=== PATIENT | male | born 1965 | race African-American/Black ===

== ENCOUNTER 2016-12-06 16:47 | Inpatient (IN) ==
[2016-12-06] MEDS ORDERED: ASPIRIN 325 MG TABLET PO STA (17:42)
[2016-12-06] MEDS ORDERED: ONDANSETRON 4 MG/2 ML VIAL IV STA (17:42)
[2016-12-06] MEDS ORDERED: ALBUTEROL/IPRATROPIUM 3 ML NEB RESP TX STA (17:42)
[2016-12-06] MEDS ORDERED: LABETALOL 20 MG/4 ML SYRINGE IV STA ×2 (17:42→20:10)
[2016-12-06] MEDS ORDERED: MORPHINE 2 MG/1 ML SYRINGE IV STA (17:42)
[2016-12-06] MEDS ORDERED: NITROGLYCERIN 2% OINT 1 INCH/GM PACK TOP STA (17:42)
[2016-12-06] MEDS ORDERED: FUROSEMIDE 100 MG/10 ML VIAL IV STA (17:42)
--- NOTE | 2016-12-06 17:45 | Emergency Department Note ---
Dmitry Hercules Brooke, am scribing for, and in the presence of, Esequiel Kern MD 17 :40. Concha Hercules Charles R, MD, personally performed the services described in this documentation, ascribed by Kavya Andres in my presence, and it is both accurate and complete [id number] . Arrival - Arrival Chief Complaint: Shortness of Breath Stated Complaint: chest pain and sob ED Nursing Triage Note: PT C/O SHORTNESS OF BREATH SINCE , INCREASINGLY WORSE WITH EXERTION. PT STATES HE STARTED TO HAVE MIDSTERNAL CHEST PAIN LAST WEEK. STATES PAIN DOES NOT RADIATE. PAIN IS NOT REPRODUCABLE. PT STATES UNABLE TO LIE FLAT. Mode of Arrival: Ambulatory Limitations: No Limitations Source: Patient, RN Notes Reviewed Time Seen by Provider: 12/06/16 17:24 - History of Present Illness HPI Narrative: Patient is a 51 year old male who presents to the ED with c/o chest pain, SOB, and elevated blood pressure. Patient says he has been having problems since a foot injury in June. Patient says the chest pain is worse with movement but better when resting. He says he feels like he is smothering when laying flat. Patient says his legs just recently started swelling. He denies any facial numbness, weakness in arms, headache, or any vision changes. Patient has PMHx of HTN. Patient is not a smoker. Onset (ago): month(s) (6) Allergies/Adverse Reactions: Allergies Allergy/AdvReac Type Severity Reaction Status Date / Time No Known Allergies Allergy Verified 12/06/16 16:55 Home Medications: Home Medications Medication Instructions Recorded Confirmed Type No Known Home Medications [No 12/06/16 12/06/16 History Known Home Medications] Review of System - Review of System 12 point system: reviewed and no additional remarkable complaints except as stated - Review of System Constitutional: Absent: fever Respiratory: Present: other (SOB). Absent: respiratory distress Cardiovascular: Present: chest pain, edema (bilateral leg), other (elevated blood pressure) Skin: Absent: rash Neurological: Absent: headache, weakness, numbness Medical,Surgical,& Family Hx - Medical History Cardio: History of: Hypertension - Social History Smoking Status: Never smoker Frequency of Alcohol Use: None Type of Drug Use: None Exam Vital Signs: Vital Signs Temperature 97.3 F L 12/06/16 19:07 Pulse Rate 82 12/06/16 19:55 Respiratory Rate 20 12/06/16 19:55 Blood Pressure 149/109 12/06/16 19:55 O2 Sat by Pulse Oximetry 97 12/06/16 19:55 - General General appearance: alert, in no apparent distress - Head Head exam: Present: atraumatic, normocephalic - Eye Eye exam: Present: normal appearance, PERRL, EOMI - ENT ENT exam: Present: normal exam - Neck Neck exam: Present: other (Increased JVD distension) - Chest Chest inspection: Present: normal inspection, symmetric chest wall rise - Respiratory Respiratory exam: Present: wheezes - Cardiovascular Cardiovascular exam: Present: normal rhythm, tachycardia, normal heart sounds - Abdominal Exam Abdominal exam: Present: soft. Absent: distention, tenderness - Extremities Exam Extremities exam: Present: pedal edema (+2) - Back Exam Back exam: Present: normal inspection - Neurological Exam Neurological exam: Present: alert, oriented X3 - Psychiatric Psychiatric exam: Present: normal affect, normal mood - Skin Skin exam: Present: warm, dry, intact, normal color Course - Consultations Consultation #1: Hospitalist will admit patient Time: 20:11 Results - Labs CBC & BMP: 12/06/16 17:42 12/06/16 17:42 Lab Results: I have reviewed the patients labs Labs: Laboratory Tests 12/06/16 12/06/16 17:42 17:42 RBC 5.55 H MCV 80.5 L MCH 25 L MCHC 31.3 L RDW 18.5 H Creatinine 1.40 H Total Bilirubin 1.10 H AST 40 H Laboratory Tests 12/06/16 17:42 B-Natriuretic Peptide 1049 H - Diagnostic Findings Procedure: Chest x-ray: report reviewed by me (Findings suggest mild cardiac decompensation.) Critical Care Time Critical Care Time: Yes Total Critical Care Time: 60 Disposition Clinical Impression: Congestive heart failure, Uncontrolled hypertension, Chest pain, UTI (urinary tract infection) Case discussed with: patient, patient's family Disposition: Still a Patient Condition: Stable Time of Disposition: 20:11
[2016-12-06 17:54] LABS: Basophils % 0.3 % (0.0-0.8); Eosinophils # 0.1 10*3/uL (0.0-0.87); Eosinophils % 1.2 % (0.00-10.9); Hematocrit 44.7 VOL% (42.0-52.0); Immature Granulocytes % 0.2 %; Immature Granulocytes Absolute 0.01 #; Lymphocytes # 1.4 10*3/uL (1.4-4.0); Lymphocytes % 23.4 % (21.2-54.2); Mean Corpuscular HGB Conc 31.3 GM/DL (32-36); Mean Corpuscular Hemoglobin 25 PG (27-34); Mean Corpuscular Volume 80.5 FL (87-102); Mean Platelet Volume 11.5 FL (9.6-12.0); Monocytes # 0.5 10*3/uL (0.11-0.8); Monocytes % 8.1 % (1.7-12.7); Neutrophils # 4.1 10*3/uL (1.4-7.4); Neutrophils % 66.8 % (38.7-73.9); Platelet Count 200 T/CUMM (130-400); Red Blood Count 5.55 MC/CUMM (3.8-5.5); Red Cell Distribution Width 18.5 % (9.3-17.3); White Blood Count 6.1 T/CUMM (4-12)
[2016-12-06] MEDS ORDERED: NITROGLYCERIN 2% OINT 1 INCH/GM PACK TOP ONE (17:56)
[2016-12-06] MEDS ORDERED: LABETALOL 20 MG/4 ML SYRINGE IV ONE ×2 (17:56→20:09)
[2016-12-06] MEDS ORDERED: ONDANSETRON 4 MG/2 ML VIAL ONE (17:56)
[2016-12-06] MEDS ORDERED: FUROSEMIDE 40 MG/4 ML VIAL ONE (17:56)
[2016-12-06] MEDS ORDERED: MORPHINE 2 MG/1 ML SYRINGE ONE (17:57)
[2016-12-06] MEDS ORDERED: ASPIRIN 325 MG TABLET ONE (17:57)
[2016-12-06] MEDS ORDERED: FUROSEMIDE 20 MG/2 ML VIAL ONE (17:57)
[2016-12-06 18:03] LABS: D-Dimer 3.8 MG/L FEU; INR 1.1; PT Patient Result 11.9 SECS
--- NOTE | 2016-12-06 18:09 | XRay Report ---
XR chest 2V Indication: Shortness of breath Comparison: None available Findings: The heart and mediastinum are stable in size and configuration. The pulmonary vascularity is slightly increased with bilateral increased interstitial lung density. No other lung infiltrates, effusions, pneumothorax or other abnormality is demonstrated. Impression: Findings suggest mild cardiac decompensation. PROCEDURE INTERPRETED AT [facility] DEPARTMENT OF RADIOLOGY Final Report Signed by: Dr. Cedrick Dennis
[2016-12-06 18:10] LABS: Albumin 3.7 G/DL (3.4-5.0); Bilirubin,Total 1.1 MG/DL (0.2-1.0); Calcium 8.7 MG/DL (8.5-10.1); Magnesium 2.1 MG/DL (1.8-2.4); Osmolality,Calculated 286.8 MOS/KG (273-304); Potassium 4.2 MMOL/L (3.5-5.1); Total Protein 6.7 G/DL (6.4-8.3); Troponin I Only 0.043 NG/ML (0.00-0.045)
[2016-12-06 19:46] LABS: Apearance,Urine Slightly Hazy (Clear); Bacteria,Urine Few /HPF (Few); Bilirubin,Urine Negative (Negative); Blood, Urine Moderate mg/dL (Negative); Glucose,Urine (UA) Negative (Negative); Hyaline Casts,Urine 8 /LPF (0-3); Ketones,Urine Negative (Negative); Nitrite,Urine Negative (Negative); Protein,Urine 100 MG/DL; RBC,Urine 27 /HPF (0-4); Squamous Epithelial Cell,Urine Occasional /HPF (0-10); Urine Color Yellow (Yellow); Urine Specific Gravity 1.013 (1.001-1.035); Urine Urobilinogen < 2.0 EU/DL (0.2-1.0); WBC,Urine 38 /HPF (0-6)
--- NOTE | 2016-12-06 19:48 | CT Report ---
CT chest pulmonary embolism Indication: Chest pain, shortness of breath, elevated d-dimer Comparison: None available Technique: Axial CT imaging of the chest is performed with intravenous contrast. Contrast dose is 80 cc of Omnipaque 350. Findings: No thrombus or other abnormality is identified in the pulmonary arteries or veins. The pulmonary vessel caliber is within normal limits. There is some delayed contrast passage show through the pulmonary arteries with minimal opacification of the left cardiac system. Cardiac size appears enlarged. There is contrast refluxing into the inferior vena cava. Enlarged lymph nodes are present in the mediastinum, largest is subcarinal 2.6 cm in size. Otherwise the heart, mediastinum and great vessels appear within normal limits. Hazy airspace density is seen in the right lower lobe Small amounts of linear airspace density are seen in the lingula segment of the left long and trace amount of the right middle lobe Remaining pulmonary parenchyma shows no evidence of airspace disease or abnormal density. No effusion or pneumothorax is present. Impression: No evidence of pulmonary thromboembolism. Reflux of contrast into the inferior vena cava, can be seen with cardiac dysfunction. Hazy airspace density right lower lung, could indicate pneumonitis. Linear densities are present, likely atelectasis versus scarring.. PROCEDURE INTERPRETED AT [facility] DEPARTMENT OF RADIOLOGY Final Report Signed by: Dr. Cedrick Dennis
[2016-12-06 20:10] LABS: Barbiturates Screen,Urine Negative (Negative); Benzodiazepines Screen,Urine Negative (Negative); Cannabinoid Screen,Urine Positive (Negative); Opiate Screen,Urine Positive (Negative); Phencyclidine Screen,Urine Negative (Negative)
[2016-12-06] MEDS ORDERED: cefTRIAXone 1,000 MG in SODIUM CHLORIDE 0.9% 100 ML IV STA (20:14)
[2016-12-06] MEDS ORDERED: cefTRIAXone 1,000 MG VIAL ONE (20:40)
--- NOTE | 2016-12-06 20:45 | Hospitalist History & Physical ---
Assessment and Plan (1) Chest pain Status: Acute Current Visit: Yes (2) Congestive heart failure Status: Acute Current Visit: Yes (3) UTI (urinary tract infection) Status: Acute Assessment and plan: Plan for this patient, feel the patient has new onset heart failure secondary to his untreated hypertension. #1 admit patient to telemetry #2 IV diuresis #3 2-D echo #4 cardiology consult #5 blood pressure control next #6 antibiotics for UTI Current Visit: Yes (4) Uncontrolled hypertension Status: Acute Current Visit: Yes History of Present Illness Chief complaint: SOB lower extremity edema and chest discomfort History of present illness: Mr. Langford is a 51 year old male who reports no past medical history presents with a chief complaint of shortness of breath. Upon questioning of the patient reports his symptoms have really been going on for the past 2 months. He had a recent injury to his foot is limited his mobility. He says that he notices that when he exerts it if he gets short of breath. He also has this chest discomfort that goes on. It gets worse with movement and better with resting. When he lays down at night he feels like a smothering he has to sleep sitting up. He has no past medical problems that he knows of. In the chest heaviness does not radiate. Patient got really concerned today and decided he needed to do something about his health and he came up to the hospital for further evaluation I was consulted to admit him Home Medications Medication Instructions Recorded Confirmed Type No Known Home Medications [No 12/06/16 12/06/16 History Known Home Medications] Allergies Allergy/AdvReac Type Severity Reaction Status Date / Time No Known Allergies Allergy Verified 12/06/16 16:55 Medical,Surgical,& Family Hx - Medical History Cardio: History of: Hypertension - Surgical History Surgical History: noncontributory (no known surgical history) - Family History Family History: Reports;: Family Cancer, Family Diabetes - Social History Smoking Status: Never smoker Frequency of Alcohol Use: None Type of Drug Use: None 12 point system: reviewed and no additional remarkable complaints except as stated Exam - Constitutional Vitals: Period Temp Pulse Resp BP Sys/Geronimo Pulse Ox Last 24 Hr 97.3 F-97.3 F 82-109 18-20 132-200/100-140 96-100 General appearance: no acute distress - Head Head exam: Present: normal inspection - Eye Eye exam: Present: EOMI Pupils: Present: YURIY - ENT ENT exam: Present: normal exam - Neck Neck exam: Present: other (some JVD distention appreciated) - Respiratory Respiratory exam: Present: rales (basilar) - Cardiovascular Cardiovascular exam: Present: regular rate and rhythm - GI/Abdominal GI/Abdominal exam: Present: normal bowel sounds - Extremities Exam Extremities exam: Present: edema (+2) - Back Exam Back exam: Present: normal inspection - Neurological Exam Neurological exam: Present: alert, oriented X3 - Psychiatric Psychiatric exam: Present: normal affect, normal mood - Skin Skin exam: Present: normal color Results - Labs CBC & BMP: 12/06/16 17:42 12/06/16 17:42
[2016-12-06] MEDS ORDERED: ZALEPLON 5 MG CAPSULE PO PRN (20:50)
[2016-12-06] MEDS ORDERED: LACTULOSE 20 GM/30 ML UDCUP PO PRN (20:50)
[2016-12-06] MEDS ORDERED: MAGNESIUM SULF RIDER 2 GM in PREMIX 1 EACH IV PRN (20:50)
[2016-12-06] MEDS ORDERED: MAGNESIUM SULF RIDER 4 GM in PREMIX 1 EACH IV PRN (20:50)
[2016-12-06] MEDS ORDERED: MORPHINE 2 MG/1 ML SYRINGE IV PRN (20:50)
[2016-12-06] MEDS ORDERED: ONDANSETRON 4 MG/2 ML VIAL IV PRN (20:50)
[2016-12-06] MEDS ORDERED: diphenhydrAMINE CAP 25 MG CAPSULE PO PRN (20:50)
[2016-12-06] MEDS ORDERED: LABETALOL 20 MG/4 ML SYRINGE IV PRN (20:58)
[2016-12-06] MEDS ORDERED: ACETAMINOPHEN 325 MG TABLET PO PRN (22:20)
[2016-12-07] MEDS: CARVEDILOL 12.5 MG TABLET PO SCH ×3 (00:06→20:22)
[2016-12-07] MEDS: ENOXAPARIN 40 MG/0.4 ML SYRINGE SUBCUT SCH ×2 (00:06→20:22)
[2016-12-07] MEDS: NITROGLYCERIN 2% OINT 1 INCH/GM PACK TOP SCH ×2 (00:10→06:07)
--- NOTE | 2016-12-07 07:11 | EKG Report ---
Stationary ECG Study [facility] ER Test Date: 12/06/2016 5:00:31 PM Pat Name: ALIX JANE Department: Room: 282 Gender: M Talent Manager: : 1965 Requested by: Esequiel Peoples Order Number: [id number] Jazmyne MD: MARY ALICE RUSSO Intervals [place] Rate: 111 P: 61 NC: 187 QRS: -3 QRSD: 102 T: 174 QT: 339 QTc: 404 Interpretive Statements SINUS TACHYCARDIA LEFT ATRIAL ABNORMALITY LEFT VENTRICULAR HYPERTROPHY WITH REPOLARIZATION ABNORMALITY Electronically Signed On 12-08-16 10:55:46 DIRECTOR OF UNDERGRADUATE ADMISSIONS by MARY ALICE RUSSO [email or web address]
[2016-12-07 07:39] LABS: Albumin 2.9 G/DL (3.4-5.0); Bilirubin,Total 0.7 MG/DL (0.2-1.0); Calcium 8.4 MG/DL (8.5-10.1); Osmolality,Calculated 290.6 MOS/KG (273-304); Potassium 4.1 MMOL/L (3.5-5.1); Risk Ratio 3.07; Total Protein 5.8 G/DL (6.4-8.3); VLDL CHOLESTEROL 21.8 MG/DL
[2016-12-07 07:43] LABS: Troponin I Only 0.053 NG/ML (0.00-0.045)
[2016-12-07] MEDS ORDERED: FUROSEMIDE 40 MG/4 ML VIAL IV SCH (08:00)
[2016-12-07] MEDS: LISINOPRIL 2.5 MG TABLET PO SCH (08:17)
[2016-12-07] MEDS: PANTOPRAZOLE 40 MG TABLET PO SCH (08:18)
[2016-12-07] MEDS ORDERED: ASPIRIN 325 MG TABLET PO SCH (09:00)
--- NOTE | 2016-12-07 09:21 | Hospitalist Progress Note ---
Assessment and Plan (1) Acute kidney injury Status: Acute Assessment and plan: Most likely secondary to CHF Creatinine slightly improved Current Visit: Yes (2) Congestive heart failure Status: Acute Assessment and plan: Probable BNP is elevated F/u echo Cardiology consulted Continue lasix Current Visit: Yes (3) Chest pain Status: Resolved Current Visit: Yes (4) UTI (urinary tract infection) Status: Acute Current Visit: Yes Hospitalist: Subjective Interval history: Patient doing well this morning. Shortness of breath is improving. Believes that his BLE edema is also improving. Exam - Constitutional Vitals: Period Temp Pulse Resp BP Sys/Geronimo Pulse Ox Last 24 Hr 96.8 F-98.2 F 72-80 16-20 125-149/88-97 93-100 General appearance: no acute distress - Head Head exam: Present: normocephalic, atraumatic - Eye Eye exam: Present: EOMI Pupils: Present: YURIY - ENT ENT exam: Present: normal exam - Neck Neck exam: Present: normal inspection - Respiratory Respiratory exam: Present: clear to auscultation bilaterally - Cardiovascular Cardiovascular exam: Present: regular rate and rhythm - GI/Abdominal GI/Abdominal exam: Present: normal bowel sounds, soft - Extremities Exam Extremities exam: Present: normal inspection - Back Exam Back exam: Present: normal inspection - Neurological Exam Neurological exam: Present: alert, oriented X3 - Psychiatric Psychiatric exam: Present: normal affect, normal mood - Skin Skin exam: Present: warm, intact Results - Labs CBC & BMP: 12/06/16 17:42 12/07/16 07:00
--- NOTE | 2016-12-07 10:29 | Cardiology Consult Note ---
Assessment and Plan - Time spent with patient Time spent with patient: Greater than 30 minutes (1) Obstructive sleep apnea Status: Acute Current Visit: Yes (2) Right heart failure Status: Acute Current Visit: Yes (3) Obesity Status: Acute Current Visit: Yes (4) Congestive heart failure Status: Acute Current Visit: Yes (5) Uncontrolled hypertension Status: Acute Current Visit: Yes (6) Chest pain Status: Chronic Assessment and plan: I suspect this is due to his very poorly controlled hypertension that is likely precipitated his heart failure. He does not have a high risk profile for coronary ischemia but has a moderate risk that he needs a left heart catheterization I think given the fact that he is from [facility] originally would like to go back there as soon as possible we should give a good heart failure/anti-ischemic regimen and have him return and establish care with a doctor of osteopathy near his home. He has no ischemic changes and no evidence of decompensated angina although he has decompensated heart failure. Current Visit: Yes Qualifiers: Chest pain type: other chest pain Qualified Code(s): R07.89 - Other chest pain; R07.8 - Other chest pain (7) Occasional recreational drug use Status: Chronic Current Visit: Yes History of Present Illness - Data of Consult Patient: new to practice Consult date: 12/07/16 Requesting Physician: Tiago Cooney - Consult Narrative Reason for consult: newly diagnosed heart failure History of present illness: Mr. Langford is a 51 year old male gentleman with long-standing history of hypertension who is noncompliant. He states he was diagnosed with hypertension around 2006 and was given a prescription for antihypertensives when they ran out he never went back to the doctor. He also has obstructive sleep apnea and is compliant with his CPAP because his states that he stops breathing at night and it scares her when he does this. The patient resides in [facility] and he works as a electronic security specialist and systems planner on [place]. The patient states that he has had orthopnea now for about 2 weeks and now for about the last several days while visiting family in [facility] he has developed pressure on his chest when he walks. He describes this as a pressure that is worsened when he ambulates. He has not had nausea or diaphoresis he has not had any chest discomfort at rest. The patient's risk factors include hypertension obesity (BMI of 44.9) and marijuana use. He does not have a family history of coronary artery disease he does not have diabetes and his lipid panel actually looks quite good. I discussed with the patient about the fact that he needs thorough workup. He is willing to get back to [place] it is possible it may be reasonable to start an antihypertensive/anti-ischemic regimen and have him follow-up with cardiology there. I will review his transthoracic echocardiogram and make further decisions and recommendations after this is done. He has no acute ST segment changes or ischemic changes on his EKG. He states he is dramatically better since therapy has been initiated. He had severely uncontrolled blood pressure on admission. His urine drug screen is positive for opiates and marijuana. He has a moderate risk profile for coronary artery disease but I suspect this is most likely due to uncontrolled hypertension. He has an S4 gallop. His PMI is laterally displaced. CC: Tiago Cooney MD - Home Medications and Allergies Home Medications: Home Medications Medication Instructions Recorded Confirmed Type No Known Home Medications [No 12/06/16 12/06/16 History Known Home Medications] Allergies/Adverse Reactions: Allergies Allergy/AdvReac Type Severity Reaction Status Date / Time No Known Allergies Allergy Verified 12/06/16 16:55 - Constitutional Constitutional: Present: lethargy, stops breathing during sleep, weight gain. Absent: anorexia, chills - EENT Eyes: Absent: blurry vision Ears: Absent: ear discharge, tinnitus Nose, mouth and throat: Absent: epistaxis, lip swelling - Cardiovascular Cardiovascular: Present: chest pain with activity (Described as a pressure), dyspnea, dyspnea on exertion, edema (2+ bilateral), orthopnea, PND. Absent: chest pain at rest, palpitations - Respiratory Respiratory: Present: dyspnea on exertion - Gastrointestinal Gastrointestinal: Present: abdominal pain - Genitourinary Genitourinary: Present: dysuria. Absent: difficulty urinating - Musculoskeletal Musculoskeletal: Present: arthralgias - Neurological Neurological: Absent: abnormal gait, abnormal speech - Endocrine Endocrine: Absent: cold intolerance, heat intolerance - Hematologic/Lymphatic Hematologic/Lymphatic: Absent: easy bleeding, easy bruising Medical,Surgical,& Family Hx - Medical History Cardio: History of: CHF (New-onset), Hypertension Respiratory: History of: Respiratory Problems (Obstructive sleep apnea) Musculoskeletal: History of: Musculoskeletal Problems (FX OR RIGHT HEEL) No history of: Amputation - Surgical History Cardiac Surgeries: Patient Denies: Femoral-Popliteal Bypass Graft, Cardiac Catheterization, Cardiac Surgery, Carotid Endarterectomy, Internal Defibrillator, Vascular Access Devices Thoracic Surgeries: Patient denies;: Lobectomy Neurologic Surgeries: Patient denies: Neurologic Surgery HEENT Surgeries: Patient denies: Carotid Endarterectomy, Eye Surgery, Tonsilectomy & Adenoidectomy Abdominal Surgeries: Patient denies: Abdominal Surgery, Splenectomy Orthopedic Surgeries: Patient denies;: Implanted Devices, Orthopedic Surgery, Spinal Surgery, Total Hip Replacement, Total Knee Replacement - Family History Family History: Reports;: Family Cancer, Family Diabetes - Social History Smoking Status: Never smoker Frequency of Alcohol Use: None Type of Drug Use: Marijuana Marital Status: Lives With:: Spouse Functional capacity: uses cane/walker Physical Examination Vital Signs Temp Pulse Resp BP Pulse Ox 97.3 F L 109 H 20 200/140 97 12/06/16 16:49 12/06/16 16:49 12/06/16 16:49 12/06/16 16:49 12/06/16 16:49 General: Present: Appears Well, Other (Obese) HEENT: Present: Normocephaly Neck: Present: Supple Neck, Midline Trachea Cardiac: Present: S1/S2, S4, Other (PMI is laterally displaced, chronic 3+edema) Lungs: Absent: No Rales Neuro: Present: Cranial Nerve 2-12 Intact, Motor Function Intact Abdomen: Present: Soft, Active Bowel Sounds Skin: Present: Other (chronic brawny edematous changes in the LE) Gait: Present: Poor Gait Extremities: Present: +3 Edema (pretibial and chronic.) Result/EKG - Labs CBC & BMP: 12/06/16 17:42 12/07/16 07:00 Labs: Laboratory Results - last 24 hr 12/07/16 12/07/16 12/07/16 07:00 07:00 07:00 Sodium 146 H Potassium 4.1 Chloride 108 H Carbon Dioxide 27 Anion Gap 15.1 H BUN 15 Creatinine 1.30 GFR Calculation 117 BUN/Creatinine Ratio 11.00 Glucose 96 Calculated Osmolality 290.6 Calcium 8.4 L Total Bilirubin 0.70 AST 32 ALT 38 Alkaline Phosphatase 80 Total Creatine Kinase 124 CK-MB (CK-2) 2.2 Troponin I 0.053 H D B-Natriuretic Peptide 897 H Total Protein 5.8 L Albumin 2.9 L Globulin 2.9 Albumin/Globulin Ratio 1.0 L Triglycerides 109 Cholesterol 141 LDL Cholesterol 86.0 VLDL Cholesterol 21.8 HDL Cholesterol 46 Heart Disease Risk Ratio 3.07 - Diagnostic Findings Procedure: Chest x-ray: image reviewed by me, report reviewed by me ( cardiomegaly and right ventricular enlargement.) - EKG EKG results: interpreted by me (biatrial abnormality and LVH)
[2016-12-07] MEDS: cefTRIAXone 1,000 MG in SODIUM CHLORIDE 0.9% 100 ML IV SCH (20:22)
[2016-12-08 04:06] LABS: Basophils % 0.5 % (0.0-0.8); Eosinophils # 0.2 10*3/uL (0.0-0.87); Hematocrit 37.8 VOL% (42.0-52.0); Lymphocytes # 1.3 10*3/uL (1.4-4.0); Lymphocytes % 33.8 % (21.2-54.2); Mean Corpuscular HGB Conc 31.7 GM/DL (32-36); Mean Corpuscular Hemoglobin 25 PG (27-34); Mean Corpuscular Volume 77.9 FL (87-102); Mean Platelet Volume 11.8 FL (9.6-12.0); Monocytes # 0.3 10*3/uL (0.11-0.8); Monocytes % 8.5 % (1.7-12.7); Neutrophils % 53.2 % (38.7-73.9); Platelet Count 193 T/CUMM (130-400); Red Blood Count 4.85 MC/CUMM (3.8-5.5); Red Cell Distribution Width 17.5 % (9.3-17.3); White Blood Count 3.8 T/CUMM (4-12)
[2016-12-08 04:31] LABS: Calcium 8.5 MG/DL (8.5-10.1); Osmolality,Calculated 286.8 MOS/KG (273-304); Potassium 4.3 MMOL/L (3.5-5.1)
--- NOTE | 2016-12-08 07:05 | ECHO Report ---
Barney Langford Exam Date: 12/07/2016 11:50 Referring Physician: Technologist: Darlin SOSA Age: 51 Ht (in): Wt (lb): Gender: M Exam [facility]: [facility] Echo Indications: PRUDENCIO, Acute Kidney Desease, CHF, HTN, Chest pain BP: / HR: Rhythm: Sinus Technical Quality: average IMPRESSIONS Severely depressed ejection fraction of 15-20% with global hypokinesis Four-chamber cardiac enlargement Mild to moderate mitral regurgitation, central Moderate mitral annular calcification primary posteriorly with no evidence of mitral stenosis Moderate tricuspid insufficiency with right ventricular systolic pressure estimated to be 30 mmHg plus the right atrial pressure At least grade 3 diastolic dysfunction MEASUREMENTS (Male / Female) Normal Values 2D ECHO LV Diastolic Diameter PLAX 6.0 cm 4.2 - 5.9 / 3.9 - 5.3 cm LV Systolic Diameter PLAX 5.3 cm LV Fractional Shortening PLAX 11.4 % IVS Diastolic Thickness 1.3 cm 0.6 - 1.0 / 0.6 - 0.9 cm LVPW Diastolic Thickness 1.3 cm 0.6 - 1.0 / 0.6 - 0.9 cm RV Internal Dim ED PLAX 3.5 cm Aortic Root Diameter 2.7 cm LA Systolic Diameter LX 5.2 cm 3.0 - 4.0 / 2.7 - 3.8 cm DOPPLER TR Peak Velocity 276.0 cm/s TR Peak Gradient 30.5 mmHg FINDINGS Left Ventricle The left ventricular cavity is dilated. End-diastolic diameter is 6 cm. There is mild to moderate concentric left ventricular hypertrophy the overall ejection fraction severely depressed at 15% some views it may be 20. Diastolic parameters are most consistent with grade 3 diastolic dysfunction.. Right Ventricle Moderately increased right ventricular size. Right Atrium Moderately increased right atrial size. Left Atrium Severely increased left atrial diameter. Mitral Valve Mildly thickened mitral valve with mild- moderate mitral regurgitation. Aortic Valve Aortic valve sclerosis without stenosis or regurgitation. Tricuspid Valve Morphologically normal tricuspid valve. Moderate tricuspid valve regurgitation. Tricuspid regurgitation velocities suggest a RVSP of 30 plus the RAP Pulmonic Valve Morphologically normal pulmonic valve. Pericardium No pericardial effusion. Aorta Normal size aortic root and proximal ascending aorta. Breana Ervin (Electronically Signed) Final Date: 08 December 2016 07:04
[2016-12-08] MEDS: FUROSEMIDE 40 MG TABLET PO SCH ×2 (07:40→08:27)
[2016-12-08] MEDS: SPIRONOLACTONE 25 MG TABLET PO SCH ×2 (07:40→08:27)
[2016-12-08] MEDS: LISINOPRIL 2.5 MG TABLET PO SCH ×2 (07:40→08:27)
[2016-12-08] MEDS: ASPIRIN EC 81 MG TABLET PO SCH ×2 (07:40→08:27)
[2016-12-08] MEDS: PANTOPRAZOLE 40 MG TABLET PO SCH ×2 (07:40→08:27)
[2016-12-08] MEDS: CARVEDILOL 12.5 MG TABLET PO SCH ×3 (07:41→21:16)
--- NOTE | 2016-12-08 08:44 | Cardiology Progress Note ---
Assessment and Plan - Time spent with patient Time spent with patient: Greater than 30 minutes (Discussion with life-changing diagnosis with the patient, orders documentation) (1) Obstructive sleep apnea Status: Acute Current Visit: Yes (2) Right heart failure Status: Acute Current Visit: Yes (3) Obesity Status: Acute Current Visit: Yes (4) Congestive heart failure Status: Acute Assessment and plan: This is acute on chronic systolic and diastolic heart failure. It is obviously decompensated as that is why he is admitted to the hospital. By definition this low ejection fraction main systolic heart failure and all systolic heart failure has diastolic heart failure. Current Visit: Yes Qualifiers: Congestive heart failure type: combined Congestive heart failure chronicity : acute on chronic Qualified Code(s): I50.43 - Acute on chronic combined systolic (congestive) and diastolic (congestive) heart failure (5) Uncontrolled hypertension Status: Chronic Current Visit: Yes (6) Chest pain Status: Chronic Assessment and plan: I think this is due to his heart failure and uncontrolled hypertension. He needs a left heart cath. Current Visit: Yes Qualifiers: Chest pain type: other chest pain Qualified Code(s): R07.89 - Other chest pain; R07.8 - Other chest pain (7) Occasional recreational drug use Status: Chronic Current Visit: Yes Cardiology - PN: Subj Interval history: Mr. Langford states that he is breathing dramatically better. His blood pressure is better and this would be anticipated. He states that once he was awakened this morning he was having some more heaviness in his chest. I reviewed the patient's transthoracic echo with him he has a severely depressed EF of approximately 15-20% with four-chamber enlargement. This is certainly not acute. I discussed with him his options of having complete evaluation here or adjusting medicines and initiating appropriate medicines and follow-up with someone in [place]. He states that he thought that he would rather have his left heart cath here. I will set him up for left heart catheterization possible percutaneous coronary intervention tomorrow. This patient is a morbidly obese, has sleep apnea, has substance abuse and is noncompliant with hypertensive treatment. He is not a very good candidate for percutaneous coronary intervention. This also would suggest the etiology of his heart failure is likely nonischemic. This is further supported by the lack of clear regional wall motion abnormality. Exam (Progress Note) - Constitutional Vitals: Period Temp Pulse Resp BP Sys/Geronimo Pulse Ox Last 24 Hr 97.1 F-97.6 F 71-76 12-20 122-150/75-116 98-100 General appearance: morbidly obese - Head Head exam: Present: normal inspection - Eye Eye exam: Present: EOMI Pupils: Present: YURIY - Respiratory Respiratory exam: Absent: rales, rhonchi - Cardiovascular Cardiovascular exam: Present: regular rate and rhythm (PMI is laterally displaced. Tones are very distant he has an S4 I cannot appreciate a significant S3) - GI/Abdominal GI/Abdominal exam: Present: normal bowel sounds - Extremities Exam Extremities exam: Present: edema (Without much change, chronic) - Neurological Exam Neurological exam: Present: alert, oriented X3 - Psychiatric Psychiatric exam: Present: normal affect, normal mood - Skin Skin exam: Present: normal color, warm, dry Result/EKG - Labs CBC & BMP: 12/08/16 03:24 12/08/16 03:24 Labs: Laboratory Results - last 24 hr 12/08/16 12/08/16 03:24 03:24 WBC 3.8 L D RBC 4.85 Hgb 12.0 L D Hct 37.8 L MCV 77.9 L MCH 25 L MCHC 31.7 L RDW 17.5 H Plt Count 193 MPV 11.8 Neut % (Auto) 53.2 Lymph % (Auto) 33.8 [place] % (Auto) 8.5 Eos % (Auto) 4.0 Baso % (Auto) 0.5 Neut # (Auto) 2.0 Lymph # (Auto) 1.3 L [place] # (Auto) 0.3 Eos # (Auto) 0.2 Baso # (Auto) 0.0 Immature Gran % 0.0 Nucleated RBC % 0.0 Immature Gran # 0.00 Nucleated RBCs # 0.00 Sodium 144 Potassium 4.3 Chloride 107 Carbon Dioxide 27 Anion Gap 14.3 BUN 16 Creatinine 1.20 GFR Calculation 129 BUN/Creatinine Ratio 13.00 Glucose 91 Calculated Osmolality 286.8 Calcium 8.5
[2016-12-08] MEDS ORDERED: POTASSIUM CHLORIDE RIDER 10 MEQ in PREMIX 1 EACH IV PRN (08:47)
[2016-12-08] MEDS ORDERED: MAGNESIUM SULF RIDER 2 GM in PREMIX 1 EACH IV PRN (08:47)
[2016-12-08] MEDS: ISOSORBIDE MONONITRATE 30 MG TABLET PO SCH (11:11)
[2016-12-08] MEDS: LISINOPRIL 20 MG TABLET PO SCH (11:11)
[2016-12-08] MEDS: hydrALAZINE 25 MG TABLET PO SCH ×2 (11:11→21:16)
--- NOTE | 2016-12-08 12:12 | Hospitalist Progress Note ---
Assessment and Plan (1) Acute kidney injury Status: Resolved Current Visit: Yes (2) Congestive heart failure Status: Acute Assessment and plan: Acute on Chronic, Echo with EF 15-20 Cardiology managing Left heart cath tomorrow Current Visit: Yes Qualifiers: Congestive heart failure type: combined Congestive heart failure chronicity : acute on chronic Qualified Code(s): I50.43 - Acute on chronic combined systolic (congestive) and diastolic (congestive) heart failure (3) Chest pain Status: Resolved Current Visit: Yes Qualifiers: Chest pain type: other chest pain Qualified Code(s): R07.89 - Other chest pain; R07.8 - Other chest pain (4) UTI (urinary tract infection) Status: Acute Current Visit: Yes Hospitalist: Subjective Interval history: No acute events overnight. He is no longer requiring supplemental oxygen. Long discussion with patient today about his hypertension and newly diagnosed heart failure. He seems very eager to take better care of himself. Exam - Constitutional Vitals: Period Temp Pulse Resp BP Sys/Geronimo Pulse Ox Last 24 Hr 97.1 F-97.6 F 71-76 16-20 127-150/75-116 99-100 General appearance: over weight - Head Head exam: Present: normocephalic, atraumatic - Eye Eye exam: Present: EOMI Pupils: Present: YURIY - ENT ENT exam: Present: normal exam - Neck Neck exam: Present: normal inspection - Respiratory Respiratory exam: Present: clear to auscultation bilaterally - Cardiovascular Cardiovascular exam: Present: regular rate and rhythm - GI/Abdominal GI/Abdominal exam: Present: normal bowel sounds, soft - Extremities Exam Extremities exam: Present: normal inspection - Back Exam Back exam: Present: normal inspection - Neurological Exam Neurological exam: Present: alert, oriented X3 - Psychiatric Psychiatric exam: Present: normal affect, normal mood - Skin Skin exam: Present: warm, intact Results - Labs CBC & BMP: 12/08/16 03:24 12/08/16 03:24
[2016-12-08] MEDS: cefTRIAXone 1,000 MG in SODIUM CHLORIDE 0.9% 100 ML IV SCH (21:16)
[2016-12-08] MEDS: ENOXAPARIN 40 MG/0.4 ML SYRINGE SUBCUT SCH (21:16)
[2016-12-09 05:02] LABS: Basophils % 0.5 % (0.0-0.8); Eosinophils # 0.1 10*3/uL (0.0-0.87); Eosinophils % 3.3 % (0.00-10.9); Hematocrit 36.9 VOL% (42.0-52.0); Hemoglobin 11.8 GM/DL (14.0-18.0); Immature Granulocytes % 0.3 %; Immature Granulocytes Absolute 0.01 #; Lymphocytes # 1.5 10*3/uL (1.4-4.0); Lymphocytes % 39.3 % (21.2-54.2); Mean Corpuscular Hemoglobin 25 PG (27-34); Mean Corpuscular Volume 77.5 FL (87-102); Mean Platelet Volume 11.7 FL (9.6-12.0); Monocytes # 0.4 10*3/uL (0.11-0.8); Monocytes % 10.2 % (1.7-12.7); Neutrophils # 1.8 10*3/uL (1.4-7.4); Neutrophils % 46.4 % (38.7-73.9); Platelet Count 190 T/CUMM (130-400); Red Blood Count 4.76 MC/CUMM (3.8-5.5); Red Cell Distribution Width 17.4 % (9.3-17.3); White Blood Count 3.9 T/CUMM (4-12)
[2016-12-09 05:33] LABS: Calcium 8.2 MG/DL (8.5-10.1); Magnesium 2.1 MG/DL (1.8-2.4); Osmolality,Calculated 291.6 MOS/KG (273-304); Potassium 4.3 MMOL/L (3.5-5.1)
[2016-12-09] MEDS ORDERED: diphenhydrAMINE CAP 25 MG CAPSULE PO ONE ×2 (06:00→11:17)
[2016-12-09] MEDS ORDERED: SODIUM CHLORIDE 0.45% 1,000 ML IV SCH (06:00)
[2016-12-09] MEDS ORDERED: DIAZEPAM 5 MG TABLET PO ONE ×2 (06:00→11:17)
--- NOTE | 2016-12-09 07:48 | EKG Report ---
Stationary ECG Study [facility] Test Date: 12/09/2016 7:47:54 AM Pat Name: ALIX JANE Department: Room: 282 Gender: M [employer]er: : 1965 Requested by: Aleks Rios Order Number: [id number] Reading MD: BRIDGET JJ Intervals [place] Rate: 82 P: 60 W[place]: 201 QRS: 30 QRSD: 104 T: 252 QT: 409 QTc: 447 Interpretive Statements SINUS RHYTHM POOR R-WAVE PROGRESSION MODERATE T-WAVE ABNORMALITY Electronically Signed On 12-09-16 20:54:19 PACKAGING MACHINE OPERATOR by BRIDGET JJ [email or web address]
--- NOTE | 2016-12-09 10:18 | Hospitalist Progress Note ---
Assessment and Plan (1) Acute kidney injury Status: Resolved Current Visit: Yes (2) Congestive heart failure Status: Acute Assessment and plan: Acute on Chronic, Echo with EF 15-20 Cardiology managing Left heart cath today Continue lasix Current Visit: Yes Qualifiers: Congestive heart failure type: combined Congestive heart failure chronicity : acute on chronic Qualified Code(s): I50.43 - Acute on chronic combined systolic (congestive) and diastolic (congestive) heart failure (3) Chest pain Status: Resolved Current Visit: Yes Qualifiers: Chest pain type: other chest pain Qualified Code(s): R07.89 - Other chest pain; R07.8 - Other chest pain (4) UTI (urinary tract infection) Status: Acute Current Visit: Yes Hospitalist: Subjective Interval history: Doing well this morning. Respiratory status is improving. Still with quite a bit of edema. Plan is for left heart cath today. Exam - Constitutional Vitals: Period Temp Pulse Resp BP Sys/Geronimo Pulse Ox Last 24 Hr 81 F-97.8 F 76-81 18-20 129-162/79-116 97-100 General appearance: over weight - Head Head exam: Present: normocephalic, atraumatic - Eye Eye exam: Present: EOMI Pupils: Present: YURIY - ENT ENT exam: Present: normal exam - Neck Neck exam: Present: normal inspection - Respiratory Respiratory exam: Present: clear to auscultation bilaterally - Cardiovascular Cardiovascular exam: Present: regular rate and rhythm - GI/Abdominal GI/Abdominal exam: Present: normal bowel sounds, soft - Extremities Exam Extremities exam: Present: normal inspection - Back Exam Back exam: Present: normal inspection - Neurological Exam Neurological exam: Present: alert, oriented X3 - Psychiatric Psychiatric exam: Present: normal affect, normal mood - Skin Skin exam: Present: warm, intact Results - Labs CBC & BMP: 12/09/16 04:15 12/09/16 04:15
--- NOTE | 2016-12-09 10:57 | Physician Query Form ---
CLICK EDIT DOCUMENT TO SELECT QUERY ANSWER --> OK --> SIGN Irma Ascencio RN Clinical Real Estate Attorney W) [phone] (f) [phone] [email or web address] PROVIDERS: Make your selection(s) from the choices in EACH section by typing an "x" and enter comments in the comment section. Please use your independent medical judgment in providing your response. This request does not imply that any particular answer is desired or expected. CLINCAL INDICATORS: (Providers should not edit this section) Based on documentation of BP checked after arrival of 200/140. "Acute Uncontrolled Hypertension" Treated with IV Lasix and IV Labetalol. Note: Hypertensive crises can present as hypertensive urgency or hypertensive emergency. Clarify which, if any of the following, is a more accurate diagnosis reflecting the type and acuity of the documented hypertension: TYPE: (x ) Hypertensive Urgency ( ) Hypertensive Emergency ( ) Uncontrolled chronic hypertension at baseline ( ) Other, please specify: ( ) Clinically unable to determine Criteria Source - Up to Date (This topic last updated: Dec 06, 2015) HYPERTENSIVE URGENCY: Severe hypertension (usually a diastolic blood pressure above 120 mmHg) in asymptomatic patients is referred to as hypertensive urgency. There is no proven benefit from rapid reduction in blood pressure in asymptomatic patients who have no evidence of acute end-organ damage and are at little short-term risk. HYPERTENSIVE EMERGENCY: Severe hypertension (usually a diastolic blood pressure above 120 mmHg) with evidence of acute end-organ damage is defined as a hypertensive emergency. A hypertensive emergency can be life threatening and requires immediate treatment, usually with parenteral medications in a monitored setting. COMMENTS: Use of terms such as suspected, likely, or probable (associated with a specific diagnosis that is being evaluated, monitored, or treated as if it exists) are acceptable and can be restated in the discharge summary if not ruled out. MTDD
[2016-12-09] MEDS ORDERED: MAGNESIUM SULF RIDER 2 GM in PREMIX 1 EACH IV PRN (11:17)
[2016-12-09] MEDS ORDERED: POTASSIUM CHLORIDE RIDER 10 MEQ in PREMIX 1 EACH IV PRN (11:17)
--- NOTE | 2016-12-09 12:31 | History and Physical Update ---
Sedation H&P Update - History and Physical H&P was reviewed, the patient examined and there: are no changes in the patients condition since last H&P was completed. - Dictation Physical: refer to H&P completed by admitting physician - Physical Exam Mental Status: alert and oriented Heart: regular rate and rhythm Lung: clear to auscultation Abdomen: within normal limits Vitals: within normal limits - Sedation Plan for Sedation: moderate Patient Consent: Procedure disscussed with patient and patinet has consented., Risks and benefits were discussed with patient,including infection,, bleeding, injury to surrounding structures, seizure, temporary nerve, Patient understands and accepts potential risks/benefits and agrees to, proceed. ASA Class: IV Airway Assessment: Class III: Soft palate, base of uvula visible
--- NOTE | 2016-12-09 12:59 | Cardiology Progress Note ---
Cardiology - PN: Subj Interval history: Cardiology note 51-year-old man with right heart failure, chronic hypertension with noncompliance and cardiomyopathy. EF 20% by recent echo. Telemetry shows steady sinus rhythm Blood pressure still high 150/106 in the right arm by me O2 sat 98% room air Decreased breath sounds Regular rhythm no murmur Abdomen obese soft benign 1+ leg edema Lab data today Hemoglobin 11.8 hematocrit 36.9 MCV 77 Sodium 146 potassium 4.3 chloride 107 CO2 27 BUN 20 creatinine 1.2 Glucose 86 magnesium 2.1 Impression Cardiomyopathy EF 20% Chronic hypertension Noncompliance with medication Congestive heart failure systolic and diastolic Obstructive sleep apnea Obesity Microcytic anemia Plan Increase carvedilol 25 mg twice daily Heart cath today This patient require aggressive lifestyle changes and risk factor modification Exam (Progress Note) - Constitutional Vitals: Period Temp Pulse Resp BP Sys/Geronimo Pulse Ox Last 24 Hr 81 F-97.8 F 76-81 16-20 129-152/79-112 97-100 Result/EKG - Labs CBC & BMP: 12/09/16 04:15 12/09/16 04:15 Labs: Laboratory Results - last 24 hr 12/09/16 12/09/16 04:15 04:15 WBC 3.9 L RBC 4.76 Hgb 11.8 L Hct 36.9 L MCV 77.5 L MCH 25 L MCHC 32.0 RDW 17.4 H Plt Count 190 MPV 11.7 Neut % (Auto) 46.4 Lymph % (Auto) 39.3 [place] % (Auto) 10.2 Eos % (Auto) 3.3 Baso % (Auto) 0.5 Neut # (Auto) 1.8 Lymph # (Auto) 1.5 [place] # (Auto) 0.4 Eos # (Auto) 0.1 Baso # (Auto) 0.0 Immature Gran % 0.3 Nucleated RBC % 0.0 Immature Gran # 0.01 Nucleated RBCs # 0.00 Sodium 146 H Potassium 4.3 Chloride 107 Carbon Dioxide 27 Anion Gap 16.3 H BUN 20 H Creatinine 1.20 GFR Calculation 130 BUN/Creatinine Ratio 16.00 Glucose 86 Calculated Osmolality 291.6 Calcium 8.2 L Magnesium 2.1
[2016-12-09] MEDS ORDERED: LIDOCAINE 1% 20 ML VIAL ONE (13:34)
[2016-12-09] MEDS ORDERED: VERAPAMIL 5 MG/2 ML VIAL ONE ×2 (13:34→14:09)
[2016-12-09] MEDS ORDERED: HEPARIN/NACL 0.9% 2 UNITS/ML 1,000 ML IV ONE (13:34)
[2016-12-09] MEDS ORDERED: NITROGLYCERIN DRIP 50 MG/250 ML BOTTLE IV ONE (13:34)
[2016-12-09] MEDS: hydrALAZINE 25 MG TABLET PO SCH ×2 (13:36→22:25)
[2016-12-09] MEDS: LISINOPRIL 20 MG TABLET PO SCH (13:36)
[2016-12-09] MEDS: ISOSORBIDE MONONITRATE 30 MG TABLET PO SCH (13:36)
[2016-12-09] MEDS: ASPIRIN EC 81 MG TABLET PO SCH (13:36)
[2016-12-09] MEDS: PANTOPRAZOLE 40 MG TABLET PO SCH (13:36)
[2016-12-09] MEDS: CARVEDILOL 12.5 MG TABLET PO SCH (13:45)
[2016-12-09] MEDS ORDERED: MIDAZOLAM 2 MG/2 ML VIAL ONE (14:00)
[2016-12-09] MEDS ORDERED: fentaNYL 100 MCG/2 ML VIAL ONE (14:00)
[2016-12-09] MEDS ORDERED: ENOXAPARIN 60 MG/0.6 ML SYRINGE ONE (14:10)
--- NOTE | 2016-12-09 14:35 | Cardiac Catheterization ---
Date of Procedure:: 12/09/16 Pre-op Diagnosis: New onset cardiomyopathy Post-op diagnosis: other (Nonischemic cardiomyopathy, decompensated) Procedure: Procedures: 1. Left heart catheterization resting hemodynamics 2. Selective left and right coronary angiography After signed an informed consent was obtained, the patient was prepped and draped in standard fashion for right radial access. Time out was recorded. 0.5 mL of 1% lidocaine were infiltrated in the skin and subcutaneous tissue overlying the right radial artery and Seldinger technique was utilized with a Angiocath to obtain access to the right radial artery. A Gather Appumo glide wire was then advanced into the midforearm under fluoroscopic guidance. The Angiocath was removed and a 6 [place] Terumo glide sheath was placed over the Glidewire. The sheath was aspirated and flushed and then 5 mg of verapamil and 200 g of nitroglycerin were given through the sheath. At this time an 035 J-wire was used to guide a [place] 6 [place] catheter into the central aorta across the aortic valve and into the ventricle. Pressure measurements and pullback measurements were obtained. The [place] catheter was then used to engage the left main coronary artery and multiple orthogonal views of the left system were obtained. The catheter then was torqued into the right coronary artery and orthogonal views of the right system were obtained. The catheter was then exchanged over the wire. The sheath was aspirated and flushed. The refinery operator assistant reviewed the films. And a TR band was placed over the glide sheath and used for hemostasis. Total contrast exposure 50 cc of omnipaque Total x-ray exposure: 2 min fluoroscopy time and 274 mGy air Kerma Findings: 1. EF not assessed for contrast conservation recent echo % 2. Hemodynamics LV: 142/29 EDP:41 Ao:142/102 3. Left main: Angiographically normal 4: Left anterior descending artery: Large and angiographically normal 5: Left circumflex artery: Large angiographically normal and dominant 6: Right coronary artery: Very large but angiographically nondominant. It is angiographically normal Assessment: 1. Nonischemic dilated cardiomyopathy, decompensated suspect secondary to hypertension Plan: 1. Therapeutic lifestyle changes. 2. Increase antihypertensives and heart failure regimen increased diuresis. Therapy lifestyle changes Cardiac rehab Anesthesia: moderate conscious sedation Surgeon / Physician: Breana Ervin Payable Representative: none Estimated blood loss: none Specimens: none sent Condition: stable Disposition: floor - Medications / Follow-up
[2016-12-09] MEDS: FUROSEMIDE 40 MG/4 ML VIAL IV SCH (21:00)
[2016-12-09] MEDS: CARVEDILOL 25 MG TABLET PO SCH (22:25)
[2016-12-09] MEDS: POTASSIUM CHLORIDE 20 MEQ TABLET PO SCH (22:25)
[2016-12-10] MEDS: ENOXAPARIN 40 MG/0.4 ML SYRINGE SUBCUT SCH ×2 (04:20→22:15)
[2016-12-10] MEDS: cefTRIAXone 1,000 MG in SODIUM CHLORIDE 0.9% 100 ML IV SCH ×2 (04:20→22:18)
[2016-12-10 04:52] LABS: Basophils % 0.5 % (0.0-0.8); Eosinophils # 0.1 10*3/uL (0.0-0.87); Hematocrit 38.1 VOL% (42.0-52.0); Hemoglobin 12.2 GM/DL (14.0-18.0); Immature Granulocytes % 0.2 %; Immature Granulocytes Absolute 0.01 #; Lymphocytes # 1.2 10*3/uL (1.4-4.0); Mean Corpuscular Hemoglobin 25 PG (27-34); Mean Corpuscular Volume 76.8 FL (87-102); Mean Platelet Volume 11.6 FL (9.6-12.0); Monocytes # 0.5 10*3/uL (0.11-0.8); Neutrophils # 2.5 10*3/uL (1.4-7.4); Neutrophils % 57.3 % (38.7-73.9); Platelet Count 194 T/CUMM (130-400); Red Blood Count 4.96 MC/CUMM (3.8-5.5); Red Cell Distribution Width 17.2 % (9.3-17.3); White Blood Count 4.4 T/CUMM (4-12)
[2016-12-10 05:21] LABS: Calcium 8.8 MG/DL (8.5-10.1); Calcium 8.9 MG/DL (8.5-10.1); Magnesium 2.2 MG/DL (1.8-2.4); Osmolality,Calculated 286.8 MOS/KG (273-304)
[2016-12-10] MEDS: ASPIRIN EC 81 MG TABLET PO SCH (09:23)
[2016-12-10] MEDS: hydrALAZINE 25 MG TABLET PO SCH ×2 (09:24→22:16)
[2016-12-10] MEDS: ISOSORBIDE MONONITRATE 30 MG TABLET PO SCH (09:25)
[2016-12-10] MEDS: LISINOPRIL 20 MG TABLET PO SCH (09:26)
[2016-12-10] MEDS: SPIRONOLACTONE 25 MG TABLET PO SCH ×2 (09:26→09:56)
[2016-12-10] MEDS: POTASSIUM CHLORIDE 20 MEQ TABLET PO SCH ×2 (09:27→22:15)
[2016-12-10] MEDS: PANTOPRAZOLE 40 MG TABLET PO SCH (09:27)
[2016-12-10] MEDS: CARVEDILOL 25 MG TABLET PO SCH ×2 (09:28→22:15)
[2016-12-10] MEDS: FUROSEMIDE 40 MG/4 ML VIAL IV SCH ×2 (09:33→17:18)
--- NOTE | 2016-12-10 09:33 | Cardiology Progress Note ---
Assessment and Plan - Time spent with patient Time spent with patient: Greater than 30 minutes (1) Cardiomyopathy, dilated, nonischemic Status: Chronic Assessment and plan: SEE PLAN OF CARE LISTED BELOW Current Visit: Yes (2) Marijuana abuse Status: Chronic Assessment and plan: SEE PLAN OF CARE LISTED BELOW Current Visit: Yes (3) Morbid obesity Status: Chronic Assessment and plan: SEE PLAN OF CARE LISTED BELOW Current Visit: Yes (4) Edema Status: Acute Assessment and plan: SEE PLAN OF CARE LISTED BELOW Current Visit: Yes (5) Anemia Status: Chronic Assessment and plan: SEE PLAN OF CARE LISTED BELOW Current Visit: Yes (6) Congestive heart failure Status: Acute Assessment and plan: SEE PLAN OF CARE LISTED BELOW Current Visit: Yes Qualifiers: Congestive heart failure type: combined Congestive heart failure chronicity : acute on chronic Qualified Code(s): I50.43 - Acute on chronic combined systolic (congestive) and diastolic (congestive) heart failure (7) Uncontrolled hypertension Status: Chronic Assessment and plan: SEE PLAN OF CARE LISTED BELOW Current Visit: Yes (8) Obstructive sleep apnea Status: Chronic Assessment and plan: SEE PLAN OF CARE LISTED BELOW Current Visit: Yes (9) Noncompliance Status: Chronic Assessment and plan: SEE PLAN OF CARE LISTED BELOW Current Visit: Yes Cardiology - PN: Subj Interval history: Mr. Langford, 51-year-old -Faro[place] male, was admitted over the weekend by Dr. Ervin. He has a long-standing history of uncontrolled hypertension and has been noncompliant. He also has a long-standing history of suspected obstructive sleep apnea and does not have a sleep device. Urine drug screen positive for opiates and marijuana. Presented to the emergency department with 2 weeks of orthopnea. He was found to have a severely reduced LVEF per echocardiogram, ejection fraction 15-20 percent with mild to moderate mitral regurgitation and grade 3 diastolic dysfunction. Because of the newly discovered cardiomyopathy, patient underwent elective cardiac catheterization December 09, [address] Ervin. Identified was the following: Findings: 1. EF not assessed for contrast conservation recent echo % 2. Hemodynamics LV: 142/29 EDP:41 Ao:142/102 3. Left main: Angiographically normal 4: Left anterior descending artery: Large and angiographically normal 5: Left circumflex artery: Large angiographically normal and dominant 6: Right coronary artery: Very large but angiographically nondominant. It is angiographically normal Assessment: 1. Nonischemic dilated cardiomyopathy, decompensated suspect secondary to hypertension He tolerated the procedure well without complication and was returned to our telemetry unit in stable condition. Overnight, he has done well. He is no longer orthopneic. Right radial access site reveals no evidence of hematoma or bruit. Radial pulse 2+. Capillary refill brisk distally. He is currently on an appropriate CHF medication regimen including beta blockade , OCTAVIA inhibitor, hydralazine and Imdur combination, spironolactone. He feels as if he is doing well. Patient is visiting from [place]. He plans to return to [place] within a few weeks. I stressed the importance of need for follow-up with a [employer] staff officer and he states he understands the vital importance of continued follow-up. I also stressed, should the patient's cardiomyopathy not improved, he will need defibrillator but patient has no health insurance at this time. Encouraged him to look into possible disability and/or insurance coverage otherwise. He has never been tested for sleep apnea but his acknowledges that he holds his breath while sleeping and she must arouse him to wake. He certainly thinks the category of obstructive sleep apnea as his neck circumference is greater than 44 cm, Mallampati Airway class III. Again, should the patient secure insurance , he will need stress testing sleep study in his future. ASSESSMENT/PLAN: 1. DILATED, NONISCHEMIC CARDIOMYOPATHY -currently taking beta-blockade, OCTAVIA inhibitor, spironolactone and hydralazine/imdur. 2. HYPERTENSION - well controlled with recent adjustments in medications 3. ACUTE CHF -acute congestive heart failure secondary to systolic and diastolic dysfunction, EF 15%. [place] Heart Association classification II- III. Continue current plan of care. 4. MILD TO MODERATE MR - continue with afterload reduction 5. CLASS III MORBID OBESITY - dietary counseling has ensued 6. SLEEP APNEA - Will need eventual sleep study outpatient 7. NON-COMPLIANCE - greater than 15 minutes was spent specifically discussing the importance of adhering to medical recommendations. Verbalized understanding. 8. MARIJUANA USE - greater than 5 minutes was spent discussing the merits of cessation 9. EDEMA - diuresing well. Continue current plan of care 10. MICROCYTIC ANEMIA - stable. Continue current plan of care Exam (Progress Note) - Constitutional Vitals: Period Temp Pulse Resp BP Sys/Geronimo Pulse Ox Last 24 Hr 96.8 F-98.2 F 65-79 16-20 115-152/68-112 96-100 Exam: General: [Appears well with no apparent distress.] [Pleasant and cooperative. ] [Appears comfortable.] HEENT: [PERRL, normocephalic, atraumatic. Mucous membranes moist. No jaundice noted. Conjunctiva moist and clear, sclerae anicteric] Neck: No JVD/HJR, no thyromegaly or lymphadenopathy noted. No carotid bruit appreciated Cardiac: [Regular rate and rhythm.] [Soft II/ HSM heard best at 5ICS left. ] PMI laterally displaced to the left. Lungs: [Clear to auscultation without accessory muscle use to assist the respiratory pattern.] Not requiring oxygen. Abdomen: Soft, bowel sounds normoactive. Nontender and nondistended. No abdominal bruit or thrill noted. No masses noted. Musculoskeletal: No fluid collection. Decreased range of motion is noted. Extremities: No clubbing, cyanosis noted. [2-3+ pitting edema bilateral lower extremities] Upper extremity pulses 2+. Lower extremity pulses +. Capillary refill less than 3 seconds. Skin: No unusual lesions or rashes. No skin breakdown appreciated. Neuro: Awake, alert and oriented 3. Moves all extremities well without hemiparesis or paralysis. No essential tremor is appreciated. Result/EKG - Labs CBC & BMP: 12/10/16 04:25 12/10/16 04:25 Lab Results: I have reviewed the past 24 hour labs Labs: Laboratory Results - last 24 hr 12/10/16 12/10/16 12/10/16 04:25 04:25 04:25 WBC 4.4 RBC 4.96 Hgb 12.2 L Hct 38.1 L MCV 76.8 L MCH 25 L MCHC 32.0 RDW 17.2 Plt Count 194 MPV 11.6 Neut % (Auto) 57.3 Lymph % (Auto) 28.0 [place] % (Auto) 11.0 Eos % (Auto) 3.0 Baso % (Auto) 0.5 Neut # (Auto) 2.5 Lymph # (Auto) 1.2 L [place] # (Auto) 0.5 Eos # (Auto) 0.1 Baso # (Auto) 0.0 Immature Gran % 0.2 Nucleated RBC % 0.0 Immature Gran # 0.01 Nucleated RBCs # 0.00 Sodium 143 144 Potassium 4.0 4.0 Chloride 104 105 Carbon Dioxide 29 28 Anion Gap 14.0 15.0 BUN 20 H 19 H Creatinine 1.20 1.10 GFR Calculation 130 145 BUN/Creatinine Ratio 16.00 17.00 Glucose 82 81 Calculated Osmolality 286.0 286.8 Calcium 8.8 8.9 Magnesium 2.2 - Diagnostic Findings Procedure: Chest x-ray: report reviewed by me - EKG EKG results: interpreted by wi EKG shows: sinus rhythm Specialty Discharge - Follow Up or Referrals
--- NOTE | 2016-12-10 10:35 | Hospitalist Progress Note ---
Assessment and Plan (1) Cardiomyopathy, dilated, nonischemic Status: Chronic Assessment and plan: LVEF by echo 15-20% with normal coronary angiography. Current Visit: Yes Hospitalist: Subjective Interval history: 51 yo male with non-coronary cardiomyopathy documented at [facility] 12/09 after initial presentation with dyspnea. Echocardiogram shows LVEF of 15-20% without pulmonary hypertension. Chest xray shows globular heart with minimal cephalization. Medical regimen introduced. Continues with diastolic hypertension. Exam - Constitutional Vitals: Period Temp Pulse Resp BP Sys/Geronimo Pulse Ox Last 24 Hr 96.8 F-98.2 F 65-79 16-20 115-152/68-112 96-100 General appearance: no acute distress, over weight - Respiratory Respiratory exam: Present: clear to auscultation bilaterally. Absent: rales, rhonchi, wheezes - Cardiovascular Cardiovascular exam: Present: regular rate and rhythm - GI/Abdominal GI/Abdominal exam: Present: normal bowel sounds. Absent: tenderness - Extremities Exam Extremities exam: Present: edema (1-2+ bilaterally) Results - Labs CBC & BMP: 12/10/16 04:25 12/10/16 04:25 Specialty Discharge - Follow Up or Referrals
[2016-12-11 04:50] LABS: Calcium 9.1 MG/DL (8.5-10.1); Magnesium 2.4 MG/DL (1.8-2.4); Osmolality,Calculated 289.7 MOS/KG (273-304)
[2016-12-11 04:51] LABS: Calcium 9.2 MG/DL (8.5-10.1); Osmolality,Calculated 287.8 MOS/KG (273-304); Potassium 3.9 MMOL/L (3.5-5.1)
--- NOTE | 2016-12-11 09:33 | Hospitalist Progress Note ---
Assessment and Plan (1) Cardiomyopathy, dilated, nonischemic Status: Chronic Assessment and plan: LVEF by echo 15-20% with normal coronary angiography. Current Visit: Yes Hospitalist: Subjective Interval history: 51 yo male with non-coronary cardiomyopathy at [facility] done 12/09. Echocardiographic LVEF 15-20%. He continues to have symptomatic improvement. Hypertensive readings less frequent and holding sinus rhythm, renal function stable with resolution of dependent edema. Exam - Constitutional Vitals: Period Temp Pulse Resp BP Sys/Geronimo Pulse Ox Last 24 Hr 97.0 F-99.6 F 71-85 18-20 122-154/77-91 94-99 General appearance: over weight - Respiratory Respiratory exam: Present: clear to auscultation bilaterally. Absent: rales, rhonchi, wheezes - Cardiovascular Cardiovascular exam: Present: regular rate and rhythm - GI/Abdominal GI/Abdominal exam: Present: normal bowel sounds - Extremities Exam Extremities exam: Absent: edema - Neurological Exam Neurological exam: Present: alert, oriented X3 Results - Labs CBC & BMP: 12/10/16 04:25 12/11/16 03:25 Specialty Discharge - Follow Up or Referrals
[2016-12-11] MEDS: hydrALAZINE 25 MG TABLET PO SCH ×2 (10:18→21:27)
[2016-12-11] MEDS: ASPIRIN EC 81 MG TABLET PO SCH (10:18)
[2016-12-11] MEDS: POTASSIUM CHLORIDE 20 MEQ TABLET PO SCH ×2 (10:18→21:27)
[2016-12-11] MEDS: LISINOPRIL 20 MG TABLET PO SCH ×2 (10:19→21:28)
[2016-12-11] MEDS: SPIRONOLACTONE 25 MG TABLET PO SCH (10:19)
[2016-12-11] MEDS: PANTOPRAZOLE 40 MG TABLET PO SCH (10:19)
[2016-12-11] MEDS: CARVEDILOL 25 MG TABLET PO SCH ×2 (10:19→21:29)
[2016-12-11] MEDS: FUROSEMIDE 40 MG/4 ML VIAL IV SCH (10:20)
--- NOTE | 2016-12-11 12:41 | Cardiology Progress Note ---
Cardiology - PN: Subj Interval history: Cardiology note 51-year-old man with congestive heart failure. Cardiac cath showed nonischemic cardiomyopathy EF 20% with widely patent coronaries Denies shortness of breath Blood pressure 140/84 O2 sat 94% Decreased breath sounds few basilar crackles Distant heart tones no murmur Lab data today Sodium 144 potassium 3.9 chloride 102 CO2 30 BUN 21 creatinine 1.20 Glucose 86 Impression New-onset heart failure Nonischemic cardiomyopathy EF 20% Obstructive sleep apnea Hypertension Obesity Microcytic anemia Plan DC IV Lasix Begin 40 mg Lasix po twice daily Increase lisinopril 20 mg twice daily BMP in a.m. Exam (Progress Note) - Constitutional Vitals: Period Temp Pulse Resp BP Sys/Geronimo Pulse Ox Last 24 Hr 97.0 F-99.6 F 72-85 18-20 130-154/77-91 94-99 Result/EKG - Labs CBC & BMP: 12/10/16 04:25 12/11/16 03:25 Labs: Laboratory Results - last 24 hr 12/11/16 12/11/16 03:25 03:25 Sodium 145 144 Potassium 4.0 3.9 Chloride 103 102 Carbon Dioxide 30 30 Anion Gap 16.0 H 15.9 H BUN 21 H 21 H Creatinine 1.10 1.20 GFR Calculation 144 130 BUN/Creatinine Ratio 19.00 17.00 Glucose 86 86 Calculated Osmolality 289.7 287.8 Calcium 9.1 9.2 Magnesium 2.4 Specialty Discharge - Follow Up or Referrals
[2016-12-11] MEDS: FUROSEMIDE 40 MG TABLET PO SCH (16:08)
[2016-12-11] MEDS: ENOXAPARIN 40 MG/0.4 ML SYRINGE SUBCUT SCH (21:29)
[2016-12-11] MEDS: cefTRIAXone 1,000 MG in SODIUM CHLORIDE 0.9% 100 ML IV SCH (21:33)
[2016-12-12 05:12] LABS: Calcium 8.5 MG/DL (8.5-10.1); Potassium 4.2 MMOL/L (3.5-5.1)
[2016-12-12 07:54] VITALS: BP 126/75
[2016-12-12] MEDS: ASPIRIN EC 81 MG TABLET PO SCH (08:05)
[2016-12-12] MEDS: SPIRONOLACTONE 25 MG TABLET PO SCH (08:05)
[2016-12-12] MEDS: CARVEDILOL 25 MG TABLET PO SCH (08:05)
[2016-12-12] MEDS: hydrALAZINE 25 MG TABLET PO SCH (08:05)
[2016-12-12] MEDS: LISINOPRIL 20 MG TABLET PO SCH (08:05)
[2016-12-12] MEDS: PANTOPRAZOLE 40 MG TABLET PO SCH (08:05)
[2016-12-12] MEDS: FUROSEMIDE 40 MG TABLET PO SCH (08:06)
[2016-12-12] MEDS: POTASSIUM CHLORIDE 20 MEQ TABLET PO SCH (08:06)
--- NOTE | 2016-12-12 08:55 | Cardiology Progress Note ---
Cardiology - PN: Subj Interval history: Cardiology note Breathing comfortably. Telemetry benign. Blood pressure 130/76 Decreased breath sounds few basilar crackles Regular rhythm no murmur Abdomen soft benign 1+ leg edema improved Lab data today Sodium 143 potassium 4.2 chloride 104 CO2 27 BUN 21 creatinine 1.0 glucose 98 Impression New onset CHF Nonischemic cardiomyopathy EF 20% Hypertension Obesity Microcytic anemia Obstructive sleep apnea suspected Plan Patient encouraged to take all medications daily and not to miss doses. Home per Dr. Cooney Exam (Progress Note) - Constitutional Vitals: Period Temp Pulse Resp BP Sys/Geronimo Pulse Ox Last 24 Hr 97.3 F-98.9 F 66-81 16-20 123-139/70-92 94-100 Result/EKG - Labs CBC & BMP: 12/10/16 04:25 12/12/16 04:00 Labs: Laboratory Results - last 24 hr 12/12/16 04:00 Sodium 143 Potassium 4.2 Chloride 104 Carbon Dioxide 27 Anion Gap 16.2 H BUN 21 H Creatinine 1.00 GFR Calculation 158 BUN/Creatinine Ratio 21.00 H Glucose 98 Calculated Osmolality 287.0 Calcium 8.5 Specialty Discharge - Follow Up or Referrals
--- NOTE | 2016-12-12 09:42 | Discharge Summary ---
Hospital Course - Hospital Course Hospital Course: 51 yo male presenting with edema and dyspnea. Echocardiographic LVEF 15-20% with cardiac cath done December 09, 2016 showing no coronary artery disease. Medical therapy and instruction initiated with favorable response. At discharge no edema and lungs are clear. Diagnosis - Discharge Diagnosis (1) Cardiomyopathy, dilated, nonischemic Status: Chronic Specialty Discharge - Follow Up or Referrals Discharge Plan - Discharge Data Disposition: Disch To Home/Self Care Discharge Diet: heart healthy Activity: resume usual activities as tolerated - Discharge Medications New Furosemide Tab [Lasix Tab] 40 mg PO BID DIURETIC #60 tablet Carvedilol [Coreg] 25 mg PO BID #60 tablet Lisinopril [Prinivil] 20 mg PO BID #60 tablet Spironolactone [Aldactone] 25 mg PO DAILY #30 tablet hydrALAZINE TAB [Apresoline Tab] 50 mg PO BID #60 tablet - Follow Up or Referral Follow Up: Bola Muñiz MD [Physician] - - Forms/Instructions Instructions: Left Heart Catheterization (DC), Dilated Cardiomyopathy (GEN) Exam - Constitutional Vitals: Period Temp Pulse Resp BP Sys/Geronimo Pulse Ox Last 24 Hr 97.3 F-98.9 F 66-81 16-20 123-139/70-92 94-100 Discharge Results Labs on day of discharge: Labs from last 24 hours 12/12/16 04:00 Sodium 143 Potassium 4.2 Chloride 104 Carbon Dioxide 27 Anion Gap 16.2 H BUN 21 H Creatinine 1.00 GFR Calculation 158 BUN/Creatinine Ratio 21.00 H Glucose 98 Calculated Osmolality 287.0 Calcium 8.5 DS: Provider Date of admission: 12/06/16 20:50 Primary care physician: . No PCP Attending physician on admission: Tiago Cooney MD Consults: 12/09/16 14:19 Consult to Cardiac Rehabilitation [CONS] Routine Reason for Cardiac Rehabilitation: Risk Factor Modification Discharging clinician: Colt Hernandez MD Expected date of discharge: 12/12/16
== END 2016-12-12 12:50 | disposition home or self-care (01) | DRG 287 ==
LOC: N.ED 16:47 → N.EDINP 20:50 → SUATTDRO 20:50 → N.TELEN 21:55
PROVIDERS: ADMIT Internal Medicine; ATTEND Internal Medicine Cardiovascular Disease
PROC: CLCCHCL (ICD-10-PCS; 2016-12-09 14:45)